=== PATIENT | male | born 1985 | race Caucasian/White ===

== ENCOUNTER 2018-06-12 19:26 | Emergency (ER) | payer SELFPAY ==
[~2018-06-12] VITALS: Ht 180.3 cm; Wt 80.4 kg
[2018-06-12 19:32] VITALS: Ht 180.3 cm; Wt 80.4 kg
[2018-06-12 20:29] LABS: BASO % 0.4 %; BASO ABS # 0.03 K/uL (0-0.2); EOS % 2.2 %; EOS ABS # 0.16 K/uL (0-0.5); HEMATOCRIT 43.5 % (42-52); HEMOGLOBIN 15.3 g/dL (14.0-18.0); IG# 0.01 K/uL (0.00-0.02); LYMPH % 29.4 %; LYMPH ABS # 2.13 K/uL (1.2-3.4); MEAN CELL VOLUME 87.5 fL (80-100); MEAN CORPUSCULAR HEMOGLOBIN 30.8 pg (25-34); MEAN CORPUSCULAR HGB CONC 35.2 g/dl (32-36); MEAN PLATELET VOLUME 10.8 fL (7.4-10.4); MONO % 6.5 %; MONO ABS # 0.47 K/uL (0.11-0.59); NEUT % 61.4 %; NEUT ABS # 4.44 K/uL (1.4-6.5); PLATELET COUNT 178 K/uL (130-400); RED CELL DISTRIBUTION WIDTH CV 11.9 % (11.5-14.5); RED CELL DISTRIBUTION WIDTH SD 37.6 fL (36.4-46.3); WHITE BLOOD COUNT 7.24 K/uL (4.8-10.8)
[2018-06-12] MEDS ORDERED: OPTIRAY 320 IV PRN (20:45)
[2018-06-12 20:52] LABS: ALBUMIN 4.6 gm/dl (3.4-5.0); CALCIUM 9.2 mg/dl (8.5-10.1); CREATININE 0.94 mg/dl (0.60-1.40); TOTAL PROTEIN 9.7 gm/dl (6.4-8.2)
--- NOTE | 2018-06-12 22:18 | DIAGNOSTIC IMAGING REPORT ---
CT OF THE ABDOMEN AND PELVIS WITH CONTRAST CLINICAL HISTORY: Lower abdominal pain. COMPARISON STUDY: None. TECHNIQUE: Following IV administration of 92 mL of Optiray-320, axial images of the abdomen and pelvis were obtained from the lung bases to the proximal femurs. Images were reviewed in the axial, sagittal, and coronal planes. IV contrast was administered without complication. A dose lowering technique was utilized adhering to the principles of ALARA. CT DOSE: 335.71 mGy.cm FINDINGS: Lung bases are clear. The liver, adrenal glands, kidneys and pancreas are normal. There is no peripancreatic or pericholecystic infiltration. Slight lobular contour of the spleen is noted. No pneumatosis, free air or portal venous gas is present. There is no peripancreatic or pericholecystic infiltration. No hydronephrosis is present. Caliber and wall thickness of small and large bowel are normal. The appendix is normal. There is no free fluid or lymphadenopathy. No suspicious osseous lesions are noted. IMPRESSION: 1. No acute process within the abdomen or pelvis. 2. Normal appendix. No bowel obstruction. Electronically signed by: Pal Morse M.D. 06/12/2018 10:16 PM Dictated Date/Time: 06/12/2018 10:10 PM
--- NOTE | 2018-06-12 22:50 | EMERGENCY ROOM VISIT NOTE ---
History First contact with patient: 19:59 Chief Complaint: ABDOMINAL PAIN Stated Complaint: LOWER ABD PAIN Nursing Triage Summary: Pt ambulatory to triage stating, "I have been having an issue with my stomach for two weeks. I wouldn't say it's pain. I went to two drs. One told me they thought it was a pulled muscle and the other said they thought I was constipation." Pain in lower abd. Denies n/v/d. History of Present Illness The patient is a 33 year old male who presents to the Emergency Room with complaints of intermittent lower abdominal pain that has started about 2 weeks ago. The patient states he was seen at the [facility] walk-in clinic and was told that he may have constipation and was given MiraLAX. He noted no difference with normal bowel movements. He states the pain was at most a 2 out of 10. He took no medication otherwise. He then had a follow-up at the [facility]. He states that in discussion with the primary treating physician they decided to treat conservatively. They thought it may be a pulled muscle given his frequent lifting at work. They did discuss doing testing at that time but the patient was without insurance and wanted to hold off. He has found no relieving factors. The pain is in the bilateral lower quadrants. There is some radiation towards the groin but denies any significant groin symptoms. Pt denies LOC, headache, fevers, chills, diaphoresis, visual changes, neck pain, chest pain, breathing difficulties, nausea, vomiting, back pain, melena, hematochezia, urinary symptoms, numbness, weakness, lymphadenopathy, rash, or other complaints. Review of Systems See HPI for pertinent positives and negatives. A total of ten systems were reviewed and were otherwise negative. Social History Smoking Status: Never Smoker Physical Exam Vital Signs Date Time Temp Pulse Resp B/P (MAP) Pulse Ox O2 Delivery O2 Flow Rate FiO2 06/12/18 23:10 36.8 58 18 135/58 99 06/12/18 22:30 36.8 58 18 135/58 99 Room Air 06/12/18 20:59 63 18 112/62 100 Room Air 06/12/18 20:29 61 06/12/18 19:32 36.9 67 18 121/65 100 Room Air Physical Exam GENERAL: Awake, alert, well-appearing, in no acute distress HENT: Normocephalic, atraumatic. Oropharynx unremarkable. EYES: Normal conjunctiva. Sclera non-icteric. NECK: Supple. No nuchal rigidity. FROM. No JVD. RESPIRATORY: Clear to auscultation. CARDIAC: Regular rate, normal rhythm. Extremities warm and well perfused. Pulses equal. ABDOMEN: Soft, non-distended. Left lower quadrant mild tenderness to palpation. No rebound or guarding. No masses. RECTAL: Deferred. : Normal male. Normal testes. No tenderness or swelling. No hernia. MUSCULOSKELETAL: Chest examination reveals no tenderness. The back is symmetrical on inspection without obvious abnormality. There is no CVA tenderness to palpation. No joint edema. LOWER EXTREMITIES: Calves are equal size bilaterally and non-tender. No edema. No discoloration. NEURO: Normal sensorium. No sensory or motor deficits noted. SKIN: No rash or jaundice noted. Medical Decision & Procedures Laboratory Results 06/12/18 20:16 Red Blood Count 4.97, Mean Corpuscular Volume 87.5, Mean Corpuscular Hemoglobin 30.8, Mean Corpuscular Hemoglobin Concent 35.2, Mean Platelet Volume 10.8, Neutrophils (%) (Auto) 61.4, Lymphocytes (%) (Auto) 29.4, Monocytes (%) (Auto) 6.5, Eosinophils (%) (Auto) 2.2, Basophils (%) (Auto) 0.4, Neutrophils # (Auto) 4.44, Lymphocytes # (Auto) 2.13, Monocytes # (Auto) 0.47, Eosinophils # (Auto) 0.16, Basophils # (Auto) 0.03 06/12/18 20:16 Test 06/12/18 20:16 White Blood Count 7.24 K/uL (4.8-10.8) Red Blood Count 4.97 M/uL (4.7-6.1) Hemoglobin 15.3 g/dL (14.0-18.0) Hematocrit 43.5 % (42-52) Mean Corpuscular Volume 87.5 fL (80-100) Mean Corpuscular Hemoglobin 30.8 pg (25-34) Mean Corpuscular Hemoglobin Concent 35.2 g/dl (32-36) Platelet Count 178 K/uL (130-400) Mean Platelet Volume 10.8 fL (7.4-10.4) Neutrophils (%) (Auto) 61.4 % Lymphocytes (%) (Auto) 29.4 % Monocytes (%) (Auto) 6.5 % Eosinophils (%) (Auto) 2.2 % Basophils (%) (Auto) 0.4 % Neutrophils # (Auto) 4.44 K/uL (1.4-6.5) Lymphocytes # (Auto) 2.13 K/uL (1.2-3.4) Monocytes # (Auto) 0.47 K/uL (0.11-0.59) Eosinophils # (Auto) 0.16 K/uL (0-0.5) Basophils # (Auto) 0.03 K/uL (0-0.2) RDW Standard Deviation 37.6 fL (36.4-46.3) RDW Coefficient of Variation 11.9 % (11.5-14.5) Immature Granulocyte % (Auto) 0.1 % Immature Granulocyte # (Auto) 0.01 K/uL (0.00-0.02) Urine Color YELLOW Urine Appearance CLEAR (CLEAR) Urine pH 8.5 (4.5-7.5) Urine Specific [place] 1.011 (1.000-1.030) Urine Protein NEG (NEG) Urine Glucose (UA) NEG (NEG) Urine Ketones NEG (NEG) Urine Occult Blood NEG (NEG) Urine Nitrite NEG (NEG) Urine Bilirubin NEG (NEG) Urine Urobilinogen NEG (NEG) Urine Leukocyte Esterase NEG (NEG) Anion Gap 7.0 mmol/L (3-11) Est Creatinine Clear Calc Drug Dose 116.8 ml/min Estimated GFR () 121.3 Estimated GFR (Non- 104.6 BUN/Creatinine Ratio 9.0 (10-20) Calcium Level 9.2 mg/dl (8.5-10.1) Total Bilirubin 0.4 mg/dl (0.2-1) Direct Bilirubin 0.1 mg/dl (0-0.2) Aspartate Amino Transf (AST/SGOT) 25 U/L (15-37) Alanine Aminotransferase (ALT/SGPT) 37 U/L (12-78) Alkaline Phosphatase 97 U/L (45-117) Total Protein 9.7 gm/dl (6.4-8.2) Albumin 4.6 gm/dl (3.4-5.0) Lipase 77 U/L (73-393) Medical Decision Triage Nursing notes reviewed and agree them. Additional history obtained from his significant other. The patient's history was concerning for abdominal pain. Differential diagnosis: Etiologies such as appendicitis, diverticulitis, PUD, biliary pathology, UTI, pancreatitis, obstruction, mesenteric ischemia, aortic pathology, infections, inflammatory bowel disease, renal colic, as well as others were entertained. Physical examination findings: As above. ER treatment provided: No medication given as the patient declined On reassessment the patient felt better. Diagnostics interpreted by me: The labs revealed an unremarkable CBC, chemistry panel, LFTs, lipase and urinalysis Imaging studies: CT scan as above Patient has lower abdominal pains that are intermittent. The exact etiology is unknown at this time. I discussed conservative management and he was in agreement. By the evaluation outlined above other emergent etiologies such as those listed in the differential, as well as others, were deemed relatively unlikely. The patient was educated about the findings as listed above. All questions were answered and the patient was pleased with the treatment. Return instructions were outlined and the patient was discharged in stable condition. The patient was referred to his primary clinic for follow-up for a recheck of the current condition. Medication Reconcilliation Current Medication List: was personally reviewed by me Blood Pressure Screening Patient's blood pressure: Elevated blood pressure Blood pressure disposition: Elevated BP felt to be situational Impression Primary Impression: Lower abdominal pain Departure Information Dispostion Home / Self-Care Referrals No Doctor, Assigned (PCP) Forms Call Back Authorization, HOME CARE DOCUMENTATION FORM, IMPORTANT VISIT INFORMATION Patient Instructions My [facility] Additional Instructions ABDOMINAL PAIN INSTRUCTIONS: Ibuprofen(Motrin, Advil) may be used for fever or pain. Use 600mg every six hours as needed. Take with food. Avoid using more than 2400mg in a 24 hour period. Do not use 2400mg per day for more than three consecutive days without physician direction. Prolonged inappropriate use can lead to stomach upset or ulcers. (AND/OR) Acetaminophen(Tylenol) may be used for fever or pain. Use 1000mg every six hours as needed. Avoid using more than 4000mg in a 24 hour period. Rest and drink plenty of fluids as tolerated. Slow sips of water or sports drinks are recommended instead of large amounts all at once. Continue current medications. Once your stomach is settled start with a clear liquid diet (jello, soup broth, etc.) and then advance as tolerated. You should avoid full, heavy meals for about 24 hrs from the time your symptoms resolved. Minimize dairy intake. Eat a high-fiber diet. Return to the ER immediately for worsening or persistent abdominal pain, vomiting, fevers, chest pains, difficulty breathing, black or bloody stools, worsening of your condition, or as needed. Follow up with your primary clinic when you are cleared by your insurance for a recheck of your current condition.
[2018-06-12 23:10] VITALS: BP 135/58; PULSE 58; TEMP 36.8; O2SAT 99
== END 2018-06-12 22:53 | disposition home or self-care (01) ==
LOC: C.EDB 19:28 → C.EDC 22:53
DX: R10.30 Lower abdominal pain, unspecified (principal)